=== PATIENT | female | born 1985 | race Caucasian/White ===

== ENCOUNTER 2016-11-07 22:02 | Emergency (ER) | payer BC ==
[2016-11-07 22:15] VITALS: BP 128/66
[2016-11-07] MEDS ORDERED: methylPREDNISolone Sodium Succinate 125 MG/2 ML SDV IVPUSH ONE (22:15)
[2016-11-07] MEDS ORDERED: Albuterol/Ipratropium 3.0-0.5 MG/3 ML Neb Soln NEB ONE (22:15)
[2016-11-07] MEDS ORDERED: Codeine/Promethazine 10-6.25 MG/5 ML Syrup 5 ML UD Cup PO ONE (22:15)
--- NOTE | 2016-11-07 22:18 | EDM.PDOC ---
ED HISTORY OF PRESENT ILLNESS - General Chief Complaint: Respiratory Problem Stated Complaint: CHEST IS TIGHT AND BURNING, [id number] Time Seen by Provider: 11/07/16 22:16 Source of Information: Reports: Patient History Limitations: Reports: No limitations - History of Present Illness INITIAL COMMENTS - FREE TEXT/NARRATIVE: few days h/o worsening cough congestion now chest tightness, denies asthma but has bad seasonal allergies. been feeling feverish too. 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 Ovaries Other OB/BYN History: surgery on ovarian cyst Musculoskeletal History: Reports: Other (see below) Other Musculoskeletal History: LUMBAR DISC DISEASE - Infectious Disease History Infectious Disease History: Reports: Chicken pox - Past Surgical History Other Musculoskeletal Surgeries/Procedures:: lt breast lumpectomy Social & Family History - Tobacco Use Smoking Status *Q: Light Tobacco Smoker Years of Tobacco use: 10 Packs/Tins Daily: 0.2 Used Tobacco, but Quit: No Second Hand Smoke Exposure: No - Caffeine Use Caffeine Use: Reports: Coffee, Energy drinks, Soda, Tea - Alcohol Use Days Per Week of Alcohol Use: 1 Number of Drinks Per Day: 1 Total Drinks Per Week: 1 - Recreational Drug Use Recreational Drug Use: No ED ROS GENERAL - Review of Systems Review Of Systems: ROS reveals no pertinent complaints other than HPI. ED EXAM, GENERAL - Physical Exam Exam: See Below Exam Limited By: No limitations General Appearance: alert, WD/WN, mild distress, other (cough spasms) Ears: hearing grossly normal Throat/Mouth: Normal voice, No airway compromise Head: atraumatic Neck: non-tender, full range of motion Respiratory/Chest: no respiratory distress, no accessory muscle use, decreased breath sounds, rales, rhonchi, wheezing. No: retractions, splinting Cardiovascular: regular rate, rhythm GI/Abdominal: soft, non tender Neurological: alert, oriented, normal cognition, normal gait, no motor/sensory deficits Psychiatric: tearful Skin Exam: Warm, Dry Lymphatic: no adenopathy Course - Vital Signs Last Recorded V/S: Last Vital Signs Temp 36.6 C 11/07/16 22:12 Pulse 96 11/07/16 22:29 Resp 20 11/07/16 22:12 BP 128/66 11/07/16 22:12 Pulse Ox 97 11/07/16 22:12 - Orders/Labs/Meds Orders: Active Orders 24 hr Category Date Time Status RT Aerosol Therapy [RC] ASDIRECTED Care 11/07/16 22:15 Active Meds: Medications Discontinued Medications Generic Name Dose Route Start Last Admin Trade Name Freq PRN Reason Stop Dose Admin Albuterol/Ipratropium 3 ml 11/07/16 22:15 11/07/16 22:19 Duoneb 3.0-0.5 Mg/3 Ml NEB 11/07/16 22:16 3 ml ONETIME ONE Administration Methylprednisolone Sodium Succinate 125 mg 11/07/16 22:15 11/07/16 22:23 Solu-Medrol IVPUSH 11/07/16 22:16 125 mg ONETIME ONE Administration Promethazine HCl/Codeine 5 ml 11/07/16 22:15 11/07/16 22:18 Phenergan With Codeine PO 11/07/16 22:16 5 ml ONETIME ONE Administration - Re-Assessments/Exams Free Text/Narrative Re-Assessment/Exam: 11/07/16 23:03 s/p neb+solumed+Rx=much better now. Departure - Departure Time of Disposition: 23:04 Disposition: Home, Self-Care 01 Condition: good Clinical Impression: Acute bronchitis with bronchospasm Instructions: Acute Bronchitis, Qunp-qd-[id number] Forms: ED Department Discharge Additional Instructions: 1) don't sleep flat at night 2) drink lots of liquids 3) take neb treatment 3 times daily for cough and wheeze 4) recheck as needed rx given: albuterol 2.5mg solution tid prn medrol dospak phenergan codeine syrup qid prn - My Orders Last 24 Hours: My Active Orders 11/07/16 22:15 RT Aerosol Therapy [RC] ASDIRECTED - Assessment/Plan Last 24 Hours: My Active Orders 11/07/16 22:15 RT Aerosol Therapy [RC] ASDIRECTED
== END 2016-11-07 23:09 | disposition home or self-care (01) ==
LOC: DL.ED 22:02
DX: J20.9 Acute bronchitis, unspecified (principal); F17.210 Nicotine dependence, cigarettes, uncomplicated; Z91.018 Allergy to other foods; Z88.5 Allergy status to narcotic agent
CPT/HCPCS: 71020; 94640; 96374; 99283; A9270; J2930

== ENCOUNTER 2021-06-24 15:50 | Emergency (ER) | payer BC ==
[2021-06-24 16:18] VITALS: BP 122/81; PULSE 86
[2021-06-24] MEDS ORDERED: Ondansetron 4 MG Tab.DIS PO ONE (17:23)
[2021-06-24] MEDS ORDERED: Ketorolac 30 MG/ML SDV IM ONE (17:23)
--- NOTE | 2021-06-24 17:33 | EDM.PDOC ---
ED HPI GENERAL MEDICAL PROBLEM - General Source of Information: Reports: Patient, RN, RN Notes Reviewed History Limitations: Reports: No Limitations Right Head Pain Score (Numeric/FACES): 5 <Anel Rodríguez - Last Filed: 06/24/21 18:14> <Cristi Govea - Last Filed: 06/24/21 19:16> - General Chief Complaint: Head Injury Stated Complaint: HIT HEAD AND IS DIZZY Time Seen by Provider: 06/24/21 17:10 - History of Present Illness INITIAL COMMENTS - FREE TEXT/NARRATIVE: Sole is a 35 y/o female who presents to the ED via personal vehicle with complaints of right lateral head pain and pressure following a head injury. The patient reports she was struck in the head with a 2x6 wooden board while running yesterday afternoon. She denies loss of consciousness during the event, but does note immediate blurry vision and pupillary changes stated by her . Both have since resolved, however she has been experiencing pressure-type pain to her right frontotemporal region. (LisaorionAnel Montiel) - Related Data Allergies Allergy/AdvReac Type Severity Reaction Status Date / Time Iodinated Contrast Media Allergy Hives Verified 06/24/21 16:18 [Iodinated Contrast Media - IV Dye] pineapple Allergy Difficulty Verified 06/24/21 16:18 Breathing tramadol Allergy Hives Verified 06/24/21 16:18 Home Meds: Home Meds . 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 Musculoskeletal History: Reports: Other (See Below) Other Musculoskeletal History: LUMBAR DISC DISEASE Neurological History: Reports: None Psychiatric History: Reports: None Endocrine/Metabolic History: Reports: None Hematologic History: Reports: None Immunologic History: Reports: None Oncologic (Cancer) History: Reports: None Dermatologic History: Reports: None - Infectious Disease History Infectious Disease History: Reports: Chicken Pox - Past Surgical History Head Surgeries/Procedures: Reports: None Female Surgical History: Reports: Tubal Ligation Other Female Surgeries/Procedures: cyst removed Other Musculoskeletal Surgeries/Procedures:: lt breast lumpectomy <Anel Rodríguez - Last Filed: 06/24/21 18:14> Social & Family History - Tobacco Use Tobacco Use Status *Q: Current Every Day Tobacco User Years of Tobacco use: 5 Packs/Tins Daily: 0.5 Second Hand Smoke Exposure: No - Caffeine Use Caffeine Use: Reports: Coffee - Recreational Drug Use Recreational Drug Use: No <Anel Rodríguez - Last Filed: 06/24/21 18:14> ED ROS GENERAL - Review of Systems Review Of Systems: Comprehensive ROS is negative, except as noted in HPI. <Cristi Govea - Last Filed: 06/24/21 19:16> ED EXAM, HEAD INJURY - Physical Exam Exam: See Below Exam Limited By: No Limitations General Appearance: Alert, WD/WN, Moderate Distress Head: Scalp Tenderness Nexus Criteria: No: Posterior, Midline Cervical Tenderness, Evidence of In toxication, Altered Level of Consciousness, Focal Neurological Deficit, Painful Distraction Injuries Eyes: Bilateral Eye: EOMI, Normal Inspection, PERRL Ears: Normal External Exam Nose: Normal Inspection, Normal Mucousa, No Blood Throat/Mouth: Normal Inspection, Normal Lips, Normal Teeth, Normal Gums, Normal Oropharynx, Normal Voice, No Airway Compromise Neck: Non-Tender, Full Range of Motion, Normal Alignment, Normal Inspection Respiratory: No Respiratory Distress, Lungs Clear, Normal Breath Sounds, No Accessory Muscle Use, Chest Non-Tender Cardiovascular: Normal Peripheral Pulses, Regular Rate, Rhythm, No Edema, No Gallop, No JVD, No Murmur, No Rub GI/Abdominal Exam: Normal Bowel Sounds, Soft, Non-Tender, No Organomegaly, No Distention, No Abnormal Bruit, No Mass (Female) Exam: Deferred Rectal (Female) Exam: Deferred Back Exam: Full Range of Motion, Normal Inspection, NT Extremities: Normal Inspection, Normal Range of Motion, Non-Tender, No Pedal Edema, Normal Capillary Refill 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 nml As Tested, No Motor/Sensory Deficits, Alert, Normal Mood/Affect, Oriented x 3 Skin: Normal Color, Warm/Dry - Maryse Coma Score Best Eye Response ([place]): (4) Open Spontaneously Best Verbal Response (Maryse): (5) Oriented Best Motor Response (Maryse): (6) Obeys Commands Maryse Total: 15 <Cristi Govea - Last Filed: 06/24/21 19:16> Course - Vital Signs Last Recorded V/S: Last Vital Signs Temp 99.9 F 06/24/21 16:13 Pulse 86 06/24/21 16:13 Resp 16 06/24/21 16:13 BP 122/81 06/24/21 16:13 Pulse Ox 98 06/24/21 16:13 - Orders/Labs/Meds Meds: Medications Discontinued Medications Generic Name Dose Route Start Last Admin Trade Name David PRN Reason Stop Dose Admin Ketorolac Tromethamine 30 mg 06/24/21 17:23 06/24/21 17:54 Ketorolac 30 Mg/Ml Sdv IM 06/24/21 17:24 30 mg ONETIME ONE Administration Ondansetron HCl 4 mg 06/24/21 17:23 06/24/21 17:56 Ondansetron 4 Mg Tab.Dis PO 06/24/21 17:24 4 mg ONETIME ONE Administration Departure <Anel Rodríguez - Last Filed: 06/24/21 18:14> - Departure Time of Disposition: 19:12 Condition: Fair - Discharge Information *PRESCRIPTION DRUG MONITORING PROGRAM REVIEWED*: Not Applicable *COPY OF PRESCRIPTION DRUG MONITORING REPORT IN PATIENT NANCY: Not Applicable <Cristi Govea - Last Filed: 06/24/21 19:16> - Departure Disposition: Home, Self-Care 01 Clinical Impression: Concussion injury of brain - Discharge Information Instructions: Concussion, Adult, [id number] Forms: ED Department Discharge Care Plan Goals: The patient was advised of the examination and CT results during the visit. The patient was given a dose of Zofran for nausea. The patient was discharged with a script for Zofran (4 mg) #20 to take 1 by mouth every 6 hours as needed for nausea. The patient was encouraged to rest and avoid using the computor or cell phone over the next 48 hours. If the patient has any additional symptoms or concerns, the patient should either return to the emergency department or visit her primary care facility. Sepsis Event Note (ED) - Evaluation Sepsis Screening Result: No Definite Risk <Anel Rodríguez - Last Filed: 06/24/21 18:14> - Focused Exam Vital Signs: Vital Signs Temp Pulse Resp BP Pulse Ox 06/24/21 16:13 99.9 F 86 16 122/81 98
--- NOTE | 2021-06-24 19:08 | CT ---
PROCEDURE INFORMATION: Exam: CT Head Without Contrast Exam date and time: 06/24/2021 6:27 PM Age: 35 years old Clinical indication: Other: Evaluate for bleed; Evalute right frontotemporal TECHNIQUE: Imaging protocol: Computed tomography of the head without contrast. Radiation optimization: All CT scans at this facility use at least one of these dose optimization techniques: automated exposure control; mA and/or kV adjustment per patient size (includes targeted exams where dose is matched to clinical indication); or iterative reconstruction. COMPARISON: No relevant prior studies available. FINDINGS: Brain: No mass effect or midline shift. No abnormal densities are seen intracranially; no sign of acute intracranial hemorrhage or cerebral edema. Cerebral ventricles: No ventriculomegaly. Paranasal sinuses: Visualized sinuses are unremarkable. No fluid levels. Mastoid air cells: Visualized mastoid air cells are well aerated. Bones/joints: Skull base and overlying calvarium are intact. No lytic or osteosclerotic lesions. Soft tissues: Unremarkable. IMPRESSION: No acute intracranial abnormality. No intracranial hemorrhage. No abnormality in right frontal-temporal region.
== END 2021-06-24 19:28 | disposition home or self-care (01) ==
LOC: DL.ED 15:50
DX: S06.0X0A Concussion without loss of consciousness, initial encounter (principal); Z91.041 Radiographic dye allergy status; Z88.5 Allergy status to narcotic agent; Z72.0 Tobacco use; Z91.018 Allergy to other foods; W22.09XA Striking against other stationary object, initial encounter
CPT/HCPCS: 70450; 96372; 99283; A9270; J1885

== ENCOUNTER 2021-10-16 10:45 | Emergency (ER) | payer BC ==
[2021-10-16 10:54] VITALS: BP 126/76; PULSE 96
[2021-10-16] MEDS ORDERED: Sodium Chloride 0.9% 10 ML Syringe FLUSH PRN (10:58)
[2021-10-16] MEDS ORDERED: Sodium Chloride 0.9% 1,000 ML IV ONE (10:58)
[2021-10-16] MEDS ORDERED: Ketorolac 30 MG/ML SDV IVPUSH ONE (10:59)
[2021-10-16 11:56] LABS: ANION GAP 13.1 mEq/L (7-13); CHLORIDE,CL 104 mmol/L (98-107); SODIUM,NA 141 mmol/L (136-145)
[2021-10-16 11:58] LABS: CORONAVIRUS COVID-19 NAA NEGATIVE (NEGATIVE); RESPIRATORY SYNCYTIAL VIR NAA NEGATIVE (NEGATIVE)
== END 2021-10-16 13:01 | disposition home or self-care (01) ==
LOC: DL.ED 10:45
DX: M25.50 Pain in unspecified joint (principal); R59.0 Localized enlarged lymph nodes; D72.821 Monocytosis (symptomatic); Z91.041 Radiographic dye allergy status; Z88.5 Allergy status to narcotic agent; Z91.018 Allergy to other foods; Z20.822 Contact with and (suspected) exposure to COVID-19
CPT/HCPCS: 0241U; 36415; 80053; 81001; 81025; 83615; 85025; 85651; 86140; 86308; 87081; 87430; 96374; 99283; 99284; J1885; J3490; J7030

== ENCOUNTER 2022-06-10 17:27 | Emergency (ER) | payer BC ==
[2022-06-10] MEDS ORDERED: Sodium Chloride 0.9% 10 ML Syringe FLUSH PRN (17:41)
[2022-06-10] MEDS ORDERED: methylPREDNISolone Sodium Succinate 125 MG/2 ML SDV IVPUSH ONE (18:05)
[2022-06-10] MEDS ORDERED: diphenhydrAMINE 50 MG/ML SDV IVPUSH ONE (18:05)
[2022-06-10] MEDS ORDERED: Iopamidol 755 Mg/ML 100 ML Bottle IVPUSH ONE (18:07)
[2022-06-10] MEDS ORDERED: EPINEPHrine 1 MG/ML SDV SUBCUT ONE (18:17)
[2022-06-10] MEDS ORDERED: EPINEPHrine 1:10,000 1 MG/10 ML Syringe ONE (18:21)
[2022-06-10] MEDS ORDERED: Ondansetron 4 MG/2 ML SDV IVPUSH ONE (18:28)
[2022-06-10 18:50] LABS: ANION GAP 12.4 mEq/L (7-13); CHLORIDE,CL 105 mmol/L (98-107); SODIUM,NA 140 mmol/L (136-145)
[2022-06-10 18:51] LABS: ESTIMATED GFR 119 mL/min (>=60)
[2022-06-10 18:53] VITALS: BP 121/73; PULSE 99
[2022-06-10 18:53] LABS: CORONAVIRUS COVID-19 NAA NEGATIVE (NEGATIVE); RESPIRATORY SYNCYTIAL VIR NAA NEGATIVE (NEGATIVE)
== END 2022-06-10 20:46 | disposition home or self-care (01) ==
LOC: DL.ED 17:27
DX: F43.9 Reaction to severe stress, unspecified (principal); Z91.041 Radiographic dye allergy status; Z91.018 Allergy to other foods; Z88.5 Allergy status to narcotic agent; Z20.822 Contact with and (suspected) exposure to COVID-19
CPT/HCPCS: 0241U; 36415; 70450; 70496; 70498; 80053; 80307; 81001; 82947; 83605; 83735; 84443; 85025; 85610; 86140; 93005; 96374; 96375; 99284; J1200; J2930; J3490; Q9967

== ENCOUNTER 2023-04-24 13:29 | Emergency (ER) | payer BC ==
[2023-04-24] MEDS ORDERED: Sodium Chloride 0.9% 10 ML Syringe FLUSH PRN (13:56)
[2023-04-24 13:57] VITALS: BP 119/68; PULSE 79
[2023-04-24 14:17] LABS: BASOPHILS PERCENT AUTO 0.5 % (0.0-1.0); EOSINOPHILS PERCENT AUTO 2.6 % (1.0-3.0); HEMATOCRIT 42.5 % (37.0-47.0); HEMOGLOBIN 14.3 g/dL (12.0-16.0); LYMPHOCYTES PERCENT AUTO 14.9 % (20.5-50.1); MEAN CORPUSCULAR HEMOGLOBIN 33.3 pg (27.0-34.0); MEAN CORPUSCULAR HGB CONC 33.6 g/dL (33.0-35.0); MEAN CORPUSCULAR VOLUME 99.1 fL (80-100); PLATELET COUNT,PLT 353 10^3/uL (150-450); RED BLOOD CELL COUNT 4.29 10^6/uL (4.2-5.4); WHITE BLOOD CELL COUNT,WBC 13.7 10^3/uL (5.0-10.0)
[2023-04-24] MEDS ORDERED: Ketorolac 30 MG/ML SDV IVPUSH ONE (14:20)
[2023-04-24 14:25] LABS: APPEARANCE,URINE CLEAR (CLEAR); BILIRUBIN,URINE NEGATIVE (NEGATIVE); COLOR,URINE YELLOW (YELLOW); GLUCOSE,URINE NEGATIVE (NEGATIVE); KETONES,URINE NEGATIVE (NEGATIVE); LEUKOCYTE ESTERASE,URINE NEGATIVE (NEGATIVE); NITRITE,URINE NEGATIVE (NEGATIVE); OCCULT BLOOD,URINE TRACE-INTACT (NEGATIVE); PROTEIN,URINE NEGATIVE (NEGATIVE); UROBILINOGEN,URINE 0.2 mg/dL (0.2-1.0)
[2023-04-24 14:26] LABS: A/G RATIO 1.2; ALBUMIN 3.8 g/dL (3.4-5.0); ANION GAP 13.9 mEq/L (7-13); BILIRUBIN TOTAL 0.5 mg/dL (0.2-1.0); BUN/CREATININE RATIO 10.6 (No establ ref range); CALCIUM 9.1 mg/dL (8.5-10.1); CREATININE 0.66 mg/dL (0.55-1.02); EST CRCL DRUG DOSING (CG) 109.25 mL/min; POTASSIUM,K 3.9 mmol/L (3.5-5.1); PROTEIN TOTAL,TP 6.9 g/dL (6.4-8.2)
[2023-04-24 14:34] LABS: BACTERIA,URINE OCCASIONAL /HPF (0-FEW/HPF); EPITHELIAL CELLS,URINE OCCASIONAL /HPF (NOT SEEN); RBC,URINE 0-5 /HPF (0-5); WBC,URINE NOT SEEN /HPF (0-5/HPF)
[2023-04-24] MEDS ORDERED: cefTRIAXone 1 GM Vial IVPUSH ONE (15:56)
== END 2023-04-24 16:25 | disposition home or self-care (01) ==
LOC: DL.ED 13:29
DX: K52.9 Noninfective gastroenteritis and colitis, unspecified (principal); N94.0 Mittelschmerz; F17.210 Nicotine dependence, cigarettes, uncomplicated; Z91.041 Radiographic dye allergy status; Z88.1 Allergy status to other antibiotic agents; Z88.5 Allergy status to narcotic agent; Z91.018 Allergy to other foods
CPT/HCPCS: 36415; 74176; 80053; 81001; 85025; 87040; 96374; 96375; 99284; J0696; J1885; J3490